=== PATIENT | female | born 2000 | race African-American/Black ===

== ENCOUNTER 2023-03-15 19:13 | Inpatient (IN) ==
[2023-03-15 20:24] LABS: ABS Basophils 0.1 10^3/uL (0.0-0.1); ABS Eosinophils 0.1 10^3/uL (0.0-0.5); ABS Monocytes 0.5 10^3/uL (0.0-0.9); ABS Neutrophils 4.9 10^3/uL (1.5-7.6); ABS Nucleated RBC 0.01 10^3/ul; Eosinophil % 1.5 %; Hematocrit 36.2 % (35-45); Hemoglobin 12.4 g/dL (11.5-14.3); Mean Corpuscular Hemoglobin 30.7 pg (27-33); Mean Corpuscular Hgb Conc 34.4 g/dL (31-36); Mean Corpuscular Volume 89.4 fL (80-97); Mean Platelet Volume 7.7 fL (7.5-11.2); Nucleated Red Blood Cells % 0.1 /100 WBC (0.0-0.4); Platelet Count 360 10^3/uL (150-450); Red Blood Count 4.04 10^6/uL (3.63-4.92); Red Cell Distribution Width 13.3 % (12-17); White Blood Count 7.6 10^3/uL (3.8-11.8)
[2023-03-15 20:43] LABS: ALT 9 U/L (7-52); AST 13 U/L (13-39); Albumin/Globulin Ratio 1.4 (1-3); Alkaline Phosphatase 63 U/L (35-149); Anion Gap 9 mmol/L (2-16); Blood Urea Nitrogen 15 mg/dL (6-24); CO2 Carbon Dioxide 25 mmol/L (22-32); Chloride 104 mmol/L (101-111); Creatinine, Serum 0.87 mg/dL (0.51-0.95); Globulin 2.9 g/dL (2-4); Glucose 95 mg/dL (70-100); Potassium 3.6 mmol/L (3.5-5.0); Sodium 138 mmol/L (135-145); Total Protein 6.9 g/dL (6.4-8.9); eGFR CKD-EPI 95.4 (>60)
[2023-03-15 20:49] LABS: HCG Pregnancy < 0.60 mIU/mL
[2023-03-15 21:00] LABS: Acetaminophen < 15 mcg/mL; Alcohol, S < 13 mg/dL (<13); Salicylate < 2.50 mg/dL (<30)
[2023-03-15 21:15] LABS: TSH Ultra Thyroid Stim Horm 1.84 mcIU/mL (0.34-5.60)
[2023-03-16 07:59] LABS: Urine Appearance Cloudy; Urine Bilirubin Negative (Negative); Urine Blood Negative (Negative); Urine Color Yellow; Urine Glucose Negative (Negative); Urine Ketones Negative (Negative); Urine Nitrite Negative (Negative); Urine Protein Negative (Negative); Urine Specific Gravity 1.028 (1.002-1.030); Urine Urobilinogen Positive (Negative)
[2023-03-16 08:25] LABS: Urine Bacteria Absent (Absent); Urine Red Blood Cell Absent (Absent); Urine Squamous Epithelial Cell Present (Absent); Urine White Blood Cell Trace(0-5/hpf) (Absent)
[2023-03-16 08:32] LABS: Urine Benzodiazepine Screen None Detected (None Detect); Urine Cannabinoids Screen None Detected (None Detect); Urine Opiates Screen None Detected (None Detect)
[2023-03-17 07:57] LABS: HDL Cholesterol 33.8 mg/dL
[2023-03-18] MEDS ORDERED: Al Hydrox/Mg Hydrox/Simet LIQ 30 ML UDC PO PRN (00:36)
[2023-03-18] MEDS: Vitamin THERAPEUTIC TAB PO SCH (07:58)
[2023-03-19] MEDS: Vitamin THERAPEUTIC TAB PO SCH (10:08)
[2023-03-20] MEDS: Vitamin THERAPEUTIC TAB PO SCH (10:31)
[2023-03-21] MEDS: Vitamin THERAPEUTIC TAB PO SCH (10:18)
[2023-03-22] MEDS: Vitamin THERAPEUTIC TAB PO SCH (09:38)
[2023-03-23] MEDS: Vitamin THERAPEUTIC TAB PO SCH (08:47)
[2023-03-24] MEDS: Vitamin THERAPEUTIC TAB PO SCH (08:59)
[2023-03-25] MEDS: Vitamin THERAPEUTIC TAB PO SCH (08:56)
[2023-03-26] MEDS: Vitamin THERAPEUTIC TAB PO SCH (08:56)
[2023-03-27] MEDS: Vitamin THERAPEUTIC TAB PO SCH (09:32)
[2023-03-28] MEDS: Vitamin THERAPEUTIC TAB PO SCH (09:08)
[2023-03-29] MEDS: Vitamin THERAPEUTIC TAB PO SCH (09:51)
[2023-03-30] MEDS: Vitamin THERAPEUTIC TAB PO SCH (10:20)
[2023-03-31] MEDS: Vitamin THERAPEUTIC TAB PO SCH (08:11)
[2023-04-01] MEDS: Vitamin THERAPEUTIC TAB PO SCH (07:45)
[2023-04-02] MEDS: Vitamin THERAPEUTIC TAB PO SCH (08:36)
[2023-04-03] MEDS: Vitamin THERAPEUTIC TAB PO SCH (08:20)
[2023-04-04] MEDS: Vitamin THERAPEUTIC TAB PO SCH (08:28)
[2023-04-04 09:22] VITALS: BP 104/70
== END 2023-04-04 15:30 | disposition home or self-care (01) | DRG 751 ==
LOC: ED 19:13 → EDHOLD 03-16 09:43 → BSU 03-16 10:51
PROVIDERS: ADMIT Psychiatry & Neurology Psychiatry; ATTEND Psychiatry & Neurology Psychiatry

== ENCOUNTER 2023-04-16 14:36 | Inpatient (IN) ==
[2023-04-16 15:42] LABS: ABS Basophils 0.1 10^3/uL (0.0-0.1); ABS Eosinophils 0.1 10^3/uL (0.0-0.5); ABS Lymphocytes 1.9 10^3/uL (1.0-4.8); ABS Monocytes 0.5 10^3/uL (0.0-0.9); ABS Neutrophils 4.3 10^3/uL (1.5-7.6); Eosinophil % 1.8 %; Hematocrit 36.1 % (35-45); Hemoglobin 12.2 g/dL (11.5-14.3); Lymphocyte % 26.8 %; Mean Corpuscular Hemoglobin 30.9 pg (27-33); Mean Corpuscular Hgb Conc 33.8 g/dL (31-36); Mean Corpuscular Volume 91.4 fL (80-97); Mean Platelet Volume 7.7 fL (7.5-11.2); Platelet Count 364 10^3/uL (150-450); Red Blood Count 3.95 10^6/uL (3.63-4.92); Red Cell Distribution Width 13.9 % (12-17); White Blood Count 6.9 10^3/uL (3.8-11.8)
[2023-04-16 16:05] LABS: HCG Pregnancy < 0.60 mIU/mL
[2023-04-16 16:19] LABS: TSH Ultra Thyroid Stim Horm 1.76 mcIU/mL (0.34-5.60)
[2023-04-16 16:22] LABS: ALT 9 U/L (7-52); AST 12 U/L (13-39); Albumin 4.1 g/dL (3.2-5.2); Albumin/Globulin Ratio 1.5 (1-3); Alkaline Phosphatase 62 U/L (35-149); Anion Gap 9 mmol/L (2-16); Blood Urea Nitrogen 9 mg/dL (6-24); CO2 Carbon Dioxide 24 mmol/L (22-32); Calcium 9.2 mg/dL (8.6-10.3); Chloride 107 mmol/L (101-111); Creatinine, Serum 0.79 mg/dL (0.51-0.95); Globulin 2.7 g/dL (2-4); Glucose 102 mg/dL (70-100); Potassium 3.5 mmol/L (3.5-5.0); Sodium 140 mmol/L (135-145); Total Protein 6.8 g/dL (6.4-8.9); eGFR CKD-EPI 107.1 (>60)
[2023-04-16 16:23] LABS: Acetaminophen < 15 mcg/mL; Alcohol, S < 13 mg/dL (<13); Salicylate < 2.50 mg/dL (<30)
[2023-04-16 17:02] LABS: Urine Appearance Cloudy; Urine Bilirubin Negative (Negative); Urine Blood Negative (Negative); Urine Color Yellow; Urine Glucose Negative (Negative); Urine Ketones Negative (Negative); Urine Nitrite Negative (Negative); Urine Protein Negative (Negative); Urine Specific Gravity 1.012 (1.002-1.030); Urine Urobilinogen Negative (Negative)
[2023-04-16 17:03] LABS: Urine Bacteria Absent (Absent); Urine Red Blood Cell Trace(0-2/hpf) (Absent); Urine Squamous Epithelial Cell Present (Absent); Urine White Blood Cell Trace(0-5/hpf) (Absent)
[2023-04-16 17:44] LABS: Urine Benzodiazepine Screen None Detected (None Detect); Urine Cannabinoids Screen None Detected (None Detect); Urine Opiates Screen None Detected (None Detect)
[2023-04-16] MEDS ORDERED: Droperidol 5 MG/2 ML 2 ML VIAL IM ONE (22:53)
[2023-04-16] MEDS ORDERED: Droperidol 5 MG/2 ML 2 ML VIAL ONE (22:54)
[2023-04-17] MEDS ORDERED: Al Hydrox/Mg Hydrox/Simet LIQ 30 ML UDC PO PRN (07:38)
[2023-04-17] MEDS ORDERED: Droperidol 5 MG/2 ML 2 ML VIAL IM PRN (09:39)
[2023-04-17] MEDS: Vitamin THERAPEUTIC TAB PO SCH (12:14)
[2023-04-17 12:45] LABS: C Reactive Protein 4.51 mg/L (<8.01)
[2023-04-17 13:12] LABS: Vitamin B12 615 pg/mL (180-914)
[2023-04-18] MEDS: Vitamin THERAPEUTIC TAB PO SCH (10:12)
[2023-04-19] MEDS: Vitamin THERAPEUTIC TAB PO SCH (08:02)
[2023-04-20] MEDS: Vitamin THERAPEUTIC TAB PO SCH (08:02)
[2023-04-21] MEDS: Vitamin THERAPEUTIC TAB PO SCH (08:36)
[2023-04-22] MEDS: Vitamin THERAPEUTIC TAB PO SCH (09:11)
[2023-04-23] MEDS: Vitamin THERAPEUTIC TAB PO SCH (08:51)
[2023-04-24] MEDS: Vitamin THERAPEUTIC TAB PO SCH (08:23)
[2023-04-25] MEDS: Vitamin THERAPEUTIC TAB PO SCH (08:24)
[2023-04-26] MEDS: Vitamin THERAPEUTIC TAB PO SCH (08:41)
[2023-04-27] MEDS: Vitamin THERAPEUTIC TAB PO SCH (08:26)
[2023-04-28] MEDS: Vitamin THERAPEUTIC TAB PO SCH (08:49)
[2023-04-29] MEDS: Vitamin THERAPEUTIC TAB PO SCH (08:25)
[2023-04-30] MEDS: Vitamin THERAPEUTIC TAB PO SCH (09:00)
[2023-05-01] MEDS: Vitamin THERAPEUTIC TAB PO SCH (09:44)
[2023-05-02] MEDS: Vitamin THERAPEUTIC TAB PO SCH (09:45)
[2023-05-03] MEDS: Vitamin THERAPEUTIC TAB PO SCH (08:58)
[2023-05-04] MEDS: Vitamin THERAPEUTIC TAB PO SCH (08:34)
[2023-05-05] MEDS: Vitamin THERAPEUTIC TAB PO SCH (09:19)
[2023-05-06] MEDS: Vitamin THERAPEUTIC TAB PO SCH (08:22)
[2023-05-07] MEDS: Vitamin THERAPEUTIC TAB PO SCH (08:10)
[2023-05-08] MEDS: Vitamin THERAPEUTIC TAB PO SCH (08:19)
[2023-05-09] MEDS: Vitamin THERAPEUTIC TAB PO SCH (08:45)
[2023-05-09] MEDS: Nicotine GUM 2MG FRUIT FLAVOR PO PRN (16:10)
[2023-05-10] MEDS: Vitamin THERAPEUTIC TAB PO SCH (08:10)
[2023-05-10] MEDS ORDERED: Paliperidone SUSTENNA 234 MG/1.5 ML IM ONE (08:15)
[2023-05-10] MEDS: Nicotine GUM 2MG FRUIT FLAVOR PO PRN (09:11)
[2023-05-11] MEDS: Vitamin THERAPEUTIC TAB PO SCH (08:42)
[2023-05-12] MEDS: Vitamin THERAPEUTIC TAB PO SCH (08:18)
[2023-05-13] MEDS: Vitamin THERAPEUTIC TAB PO SCH (08:13)
[2023-05-13] MEDS ORDERED: Paliperidone SUSTENNA 156 MG/1 ML IM ONE (08:29)
[2023-05-14] MEDS: Vitamin THERAPEUTIC TAB PO SCH (08:22)
[2023-05-15] MEDS: Vitamin THERAPEUTIC TAB PO SCH (08:22)
[2023-05-16 08:51] VITALS: BP 137/57
[2023-05-16] MEDS: Vitamin THERAPEUTIC TAB PO SCH (09:05)
[2023-06-10] MEDS ORDERED: Paliperidone SUSTENNA 234 MG/1.5 ML IM ONE (10:06)
[2023-06-10] MEDS ORDERED: Paliperidone SUSTENNA 234 MG/1.5 ML IM SCH (11:00)
== END 2023-05-16 12:15 | disposition home or self-care (01) | DRG 750 ==
LOC: ED 14:36 → EDHOLD 04-17 07:38 → BSU 04-17 11:36
PROVIDERS: ADMIT Psychiatry & Neurology Psychiatry; ATTEND Psychiatry & Neurology Psychiatry